=== PATIENT | female | born 1960 | race Caucasian/White ===

== ENCOUNTER 2016-06-26 23:09 | Observation (INO) | payer OTHER ==
[~2016-06-26] VITALS: Ht 170.2 cm; Wt 70.0 kg
[2016-06-26 23:10] VITALS: BP 187/92; PULSE 102; RESP 20; TEMP 98.6; O2SAT 98
--- NOTE | 2016-06-26 23:57 | PD ---
HPI Chief Complaint: Injury Time Seen by Provider: 23:48 Travel History International Travel<30 days: No Contact w/Intl Traveler<30days: No Traveled to known affect area: No History of Present Illness HPI 55-year-old female presents for evaluation of left wrist pain. She reports a prior to arrival she slipped in the bathroom and fell, landing on her left wrist. She now has left wrist pain and deformity. Pain is throbbing, constant , worse with movement. She denies any numbness or tingling distal to the injury site. Her primary care physician is Dr. Burks. She denies any other injuries and she has no other complaints at this time. [facility] Past Medical History Anxiety: Yes Past Surgical History Section: Yes (1996) Social History Alcohol Use: No Tobacco Use: No Substance Use: No Allergies-Medications (Allergen,Severity, Reaction): Coded Allergies: Compazine (Verified Allergy, Mild, 06/26/16) Penicillin (Verified Allergy, Unknown, 06/26/16) Reported Meds & Prescriptions Reported Meds & Active Scripts Active No Active Prescriptions or Reported Medications Review of Systems Except as stated in HPI: all other systems reviewed are Neg Physical Exam Narrative GENERAL: Well-developed well-nourished female who appears in pain. SKIN: Warm and dry. There is bruising around the left wrist. HEAD: Atraumatic. Normocephalic. EYES: Pupils equal and round. No scleral icterus. No injection or drainage. ENT: No nasal bleeding or discharge. Mucous membranes pink and moist. NECK: Trachea midline. No JVD. CARDIOVASCULAR: Regular rate and rhythm. No murmur appreciated. RESPIRATORY: No accessory muscle use. Clear to auscultation. Breath sounds equal bilaterally. MUSCULOSKELETAL left wrist deformity with tenderness to palpation. No open fractures. No skin tenting. 2+ radial pulse. Capillary refill less than 2 seconds all digits left hand. Distal sensation intact in the median radial and ulnar nerve distributions. NEUROLOGICAL: Awake and alert. No obvious cranial nerve deficits. Motor grossly within normal limits. Normal speech. Data Data Last Documented VS Vital Signs Date Time Temp Pulse Resp B/P Pulse Ox O2 Delivery O2 Flow Rate FiO2 06/27/16 01:21 70 15 138/81 99 06/26/16 23:10 98.6 Orders Iv Access Insert/Monitor (06/26/16 23:54) Morphine Inj (Morphine Inj) (06/27/16 00:00) Ondansetron Inj (Zofran Inj) (06/27/16 00:00) Wrist, Complete ([id number]) (06/26/16 ) Ice/Cold Pack (06/26/16 23:54) Hydromorphone Pf Inj (Dilaudid Pf Inj) (06/27/16 00:45) Splint Or Brace Apply/Monitor (06/27/16 01:12) Propofol 200 Mg/20 Ml Inj (Diprivan 200 (06/27/16 01:30) Sodium Chlor 0.9% 1000 Ml Inj (Ns 1000 M (06/27/16 01:30) Wrist, Limited (Ap&Lat) (06/27/16 ) Complete Blood Count With Diff (06/27/16 02:34) Basic Metabolic Panel (Bmp) (06/27/16 02:34) Act Partial Throm Time (Ptt) (06/27/16 02:34) Prothrombin Time / Inr (Pt) (06/27/16 02:34) Electrocardiogram (06/27/16 ) Admit Order (Ed Use Only) (06/27/16 02:40) Consult Orthopedic (06/27/16 ) Vital Signs (Adult) Q4H (06/27/16 02:41) Diet Npo (06/27/16 Breakfast) Activity Oob With Assistance (06/27/16 02:41) ^ Saline Lock (06/27/16 02:41) Resp Oxygen Eliezer C Titrat 1-4 L (06/27/16 ) ^ Notify Dr: Other (06/27/16 02:41) Ondansetron Inj (Zofran Inj) (06/27/16 02:45) Sodium Chloride 0.9% Flush (Ns Flush) (06/27/16 09:00) Sodium Chloride 0.9% Flush (Ns Flush) (06/27/16 02:45) Morphine Inj (Morphine Inj) (06/27/16 02:45) MDM Medical Decision Making Medical Screen Exam Complete: Yes Emergency Medical Condition: Yes Medical Record Reviewed: Yes Interpretation(s) Wrist x-ray FINDINGS: Examination demonstrates a comminuted and impacted fracture of the distal radial metaphysis with intra-articular extension and dorsal angulation and displacement. There are degenerative changes of the thumb basal joint identified. Differential Diagnosis Wrist fracture, dislocation, sprain, hematoma Narrative Course 55-year-old female presents after falls left wrist pain. IV was established and the patient was given pain medication, Zofran. X-ray confirms a comminuted and impacted fracture of the distal radial metaphysis with intra-articular extension and dorsal displacement. After informed consent was achieved, procedural sedation and closed reduction was performed. See Dr. Lewis's procedural sedation note. A sugar tong splint was applied. Postreduction films show some improvement in anatomical alignment but continued residual displacement. Discussed with the on-call orthopedist who would like patient admitted medically with orthopedic consultation. The patient is agreeable with this. Procedures Procedure Narrative Left wrist fracture reduction: After consent and sedation were achieved, the left wrist fracture was reduced by applying traction, countertraction. The patient had good capillary refill distally and 2+ radial pulse after the procedure. A sugar tong splint was applied. Patient tolerated procedure well. Diagnosis Primary Impression: Left wrist fracture Qualified Code: S62.102A - Left wrist fracture, closed, initial encounter Admitting Information Admitting Physician Requests: Observation Scripts No Active Prescriptions or Reported Meds Zeus Osman Jun 26, 2016 23:57
[2016-06-27] MEDS ORDERED: MORPHINE SULFATE 8 MG/ML INJ IV PUSH ONE
[2016-06-27] MEDS ORDERED: HYDROmorphone HCL PF 1 MG/ML VIAL IV PUSH ONE (00:45)
--- NOTE | 2016-06-27 01:07 | RADRPT ---
EXAM DATE/TIME: 06/27/2016 00:53 [facility] COMPARISON: No previous studies available for comparison. INDICATIONS : Left wrist pain, fall. MEDICAL HISTORY : None. SURGICAL HISTORY : None. ENCOUNTER: Initial ACUITY: 1 day PAIN SCORE: 10/10 LOCATION: Left wrist FINDINGS: Examination demonstrates a comminuted and impacted fracture of the distal radial metaphysis with intr a-articular extension and dorsal angulation and displacement. There are degenerative changes of the t humb basal joint identified. CONCLUSION: Distal radius fracture. Nixon Schaffer MD on June 27, 2016 at 1:05 Board Certified Radiologist. This report was verified electronically.
[2016-06-27 01:21] VITALS: BP 138/81; PULSE 70; RESP 15; O2SAT 99
[2016-06-27] MEDS ORDERED: PROPOFOL 200 MG/20 ML AMP IV ONE ×3 (01:30→12:00)
[2016-06-27] MEDS ORDERED: SODIUM CHLOR 0.9% 1000 ML INJ 1,000 ML IV ONE (01:30)
[2016-06-27 01:45] VITALS: O2SAT 100
--- NOTE | 2016-06-27 02:14 | PD ---
Data Data Last Documented VS Vital Signs Date Time Temp Pulse Resp B/P Pulse Ox O2 Delivery O2 Flow Rate FiO2 06/27/16 01:21 70 15 138/81 99 06/26/16 23:10 98.6 Orders Iv Access Insert/Monitor (06/26/16 23:54) Morphine Inj (Morphine Inj) (06/27/16 00:00) Ondansetron Inj (Zofran Inj) (06/27/16 00:00) Wrist, Complete ([id number]) (06/26/16 ) Ice/Cold Pack (06/26/16 23:54) Hydromorphone Pf Inj (Dilaudid Pf Inj) (06/27/16 00:45) Splint Or Brace Apply/Monitor (06/27/16 01:12) Propofol 200 Mg/20 Ml Inj (Diprivan 200 (06/27/16 01:30) Sodium Chlor 0.9% 1000 Ml Inj (Ns 1000 M (06/27/16 01:30) Wrist, Limited (Ap&Lat) (06/27/16 ) MDM Medical Record Reviewed: Yes Supervised Visit with IDA: Yes Procedures Procedure Narrative After the risks and benefits were discussed the following procedure was performed: MODERATE SEDATION: The patient was placed on a horseradish grinder and pulse oximetry. An ambu bag and suction was immediately available at bedside. The patient was monitored by the nurse. Oxygen saturation , heart rate and blood pressure were monitored. Procedural sedation was acheived using propofol. The patient was observed until awake and alert. Procedural Sedation time in attendance was 15 minutes. Scripts No Active Prescriptions or Reported Lawrences Stalin Franco MD Jun 27, 2016 02:14
--- NOTE | 2016-06-27 02:33 | RADRPT ---
EXAM DATE/TIME: 06/27/2016 02:26 [facility] COMPARISON: WRIST LEFT COMPLETE ([id number]), June 27, 2016, 0:53. INDICATIONS : Post reduction, left wrist. MEDICAL HISTORY : None. SURGICAL HISTORY : None. ENCOUNTER: Initial ACUITY: 1 day PAIN SCORE: 7/10 LOCATION: Left wrist FINDINGS: Cast in place. Distal radial metaphysis fracture is again seen with displaced fragments noted and mil d dorsal angulation. CONCLUSION: Distal radius fracture. Nixon Schaffer MD on June 27, 2016 at 2:31 Board Certified Radiologist. This report was verified electronically.
[2016-06-27] MEDS ORDERED: ONDANSETRON HCL 4 MG/2 ML VIAL IV PRN (02:45)
[2016-06-27] MEDS ORDERED: SODIUM CHLORIDE 0.9% FLUSH 5 ML FLUSH IVF PRN (02:45)
[2016-06-27 03:09] LABS: BASOPHIL # 0.1 TH/MM3 (0-0.2); BASOPHIL % 0.5 % (0.0-2.0); EOSINOPHIL % 0.3 % (0.0-4.0); HEMATOCRIT 37.1 % (35.0-46.0); HEMO FLAGS DIFF FINAL; LYMPH % 15.1 % (9.0-44.0); LYMPHOCYTE # 1.6 TH/MM3 (1.0-4.8); MEAN CELL VOLUME 92.2 FL (80.0-100.0); MEAN CORPUSCULAR HGB CONC 34.7 % (32.0-36.0); MONO % 9.4 % (0.0-8.0); NEUT % 74.7 % (16.0-70.0); PLATELET COUNT 248 TH/MM3 (150-450); RED BLOOD COUNT 4.02 MIL/MM3 (4.00-5.30); RED CELL DISTRIBUTION WIDTH 13.7 % (11.6-17.2); WHITE BLOOD COUNT 10.7 TH/MM3 (4.0-11.0)
[2016-06-27 03:20] LABS: PROTHROMBIN TIME - PATIENT 10.6 SEC (9.8-11.6)
[2016-06-27 03:23] LABS: BICARBONATE 27.8 MEQ/L (21.0-32.0); POTASSIUM 3.9 MEQ/L (3.5-5.1)
[2016-06-27] MEDS: MORPHINE SULFATE 4 MG/ML INJ IV PUSH PRN ×2 (03:32→06:21)
[2016-06-27 06:55] VITALS: BP 146/81; PULSE 75; RESP 18; TEMP 98.6; O2SAT 99
[2016-06-27] MEDS ORDERED: BUPIVACAINE/EPINEPHRINE 0.25% PF 30 ML VIAL ONE (07:00)
[2016-06-27] MEDS ORDERED: GENTAMICIN SULFATE 80 MG/2 ML VIAL ONE (07:00)
[2016-06-27] MEDS ORDERED: VANCOMYCIN HCL 1000 MG VIAL ONE (07:00)
[2016-06-27] MEDS ORDERED: SODIUM CHLOR 0.9% 250 ML INJ 250 ML ONE (07:01)
--- NOTE | 2016-06-27 07:10 | PD.ORT.PN ---
Subjective Subjective Remarks s/p fall at home. left wrist pain Objective Vitals Vital Signs Date Time Temp Pulse Resp B/P Pulse Ox O2 Delivery O2 Flow Rate FiO2 06/27/16 01:45 100 Nasal Cannula 3.00 06/27/16 01:45 100 3.00 06/27/16 01:21 70 15 138/81 99 06/26/16 23:10 98.6 102 20 187/92 98 Result Diagram: 06/27/16 0300 06/27/16 0300 Other Results Laboratory Tests Test 06/27/16 03:00 Prothrombin Time 10.6 SEC (9.8-11.6) Prothromb Time International 1.0 RATIO Ratio Imaging Last 24 hours Impressions Wrist X-Ray 06/27/16 0000 Signed Impressions: Service Date/Time: Monday, June 27, 2016 02:26 - CONCLUSION: Distal radius fracture. Nixon Schaffer MD Objective Remarks LUE: +sugar tong splint. NVI with good sensation of fingers. Assessment & Plan Assessment and Plan 1) Left Distal Radius Fx -consents -surgery today -plan for DC home later today post op -f/u with Sylvia or STEPHEN in 2 weeks Demario Carballo Jun 27, 2016 07:10
[2016-06-27] MEDS ORDERED: ACETAMINOPHEN 1000 MG/100 ML VIAL IV ONE (07:38)
[2016-06-27] MEDS ORDERED: MIDAZOLAM HCL 2 MG/2 ML VIAL ONE (07:38)
[2016-06-27] MEDS ORDERED: ceFAZolin 2 GM PREMIX 50 ML ONE (07:39)
[2016-06-27] MEDS ORDERED: FAMOTIDINE 20 MG/2 ML VIAL ONE (07:39)
--- NOTE | 2016-06-27 07:48 | MB ---
cc: ROSANNE YING DATE OF CONSULTATION: 06/27/2016 REASON FOR CONSULTATION Displaced left distal radius fracture. HISTORY OF PRESENT ILLNESS Lucia is a 55-year-old female who was at home. She was walking out of the bathroom when she slipped and fell. She describes a mechanical fall. She denies dizziness, syncope or loss of consciousness. She landed on her left outstretched arm. She had immediate left wrist pain and deformity. She presented to the emergency room where x-rays revealed a displaced left distal radius fracture. She is currently awake and alert on the orthopedic floor. Her only complaint is her left wrist. The pain is worse with movement and is improved with rest. PAST MEDICAL HISTORY ILLNESSES Anxiety. SURGERIES . ALLERGIES 1. COMPAZINE. 2. PENICILLIN. MEDICATIONS None prior to hospitalization. SOCIAL HISTORY The patient denies alcohol, tobacco or drug use. FAMILY HISTORY The patient denies familial medical problems. REVIEW OF SYSTEMS The patient denies headache, visual changes, neck pain, chest pain, shortness of breath, abdominal pain, nausea, vomiting or recent weight loss. She complains of left wrist pain. PHYSICAL EXAMINATION GENERAL: The patient is a well-developed, well-nourished 55-year-old female in no acute distress. She is awake and alert. She is alert and oriented x3. VITAL SIGNS: Temperature 98.6, pulse 102, respirations 15, blood pressure 138/81. O2 sat is 99% on three liters nasal cannula. HEAD: The patient is normocephalic. Pupils are equal. NECK: Soft and nontender. Trachea is midline. ABDOMEN: Soft, nontender, nondistended. EXTREMITIES: Examination of left arm reveals diffuse tenderness around her wrist. There is mild swelling present. She has intact sensation in radial, ulnar and median nerve distributions. The radial pulse is palpable. Skin is intact. She has no tenderness around her elbow or shoulder. Examination of right arm reveals no pain with shoulder, elbow or wrist motion. Skin is intact. Radial pulse is palpable. Sensation is intact in all fingers. [employer] strength is +5. Examination of bilateral lower extremities reveals no significant pain with hip, knee or ankle motion. Skin is intact to both feet. Dorsalis pedis pulses are palpable. X-RAYS X-rays of the left wrist were reviewed. X-rays reveal a comminuted intraarticular displaced left distal radius fracture. IMPRESSION A comminuted displaced intraarticular left distal radius fracture. PLAN The treatment options were discussed with the patient. At this point I would recommend open reduction, internal fixation of the left distal radius. The risks of surgery include bleeding, infection, injuries to arteries, nerves and blood vessels, tendon rupture, painful hardware, wrist stiffness, loss of motion, wrist arthritis as well as medical complications associated with anesthesia. All questions were answered. I will plan on surgery today. A mid-level provider in my office, nurse practitioner or PA, may see this patient on a follow-up basis and continue to implement the objective of this plan including: Starting or adjusting medications, injections of muscle, tendon, bursa or joints, cast application, orthotic or brace application, physical therapy, further radiographic studies including x-ray, MRI, CT, ultrasounds or bone scan, vascular studies, neurologic studies, or other specialist consultations, and proceeding with surgical management as appropriate. MD NAIF Gr/CHANTE /7:17 AM /7:37 AM
--- NOTE | 2016-06-27 08:50 | PD.OP ---
cc: Emile Antoine MD Operative Report Date of Surgery: Jun 27, 2016 Preoperative Diagnosis: Displaced left distal radius intra-articular fracture Postoperative Diagnosis: Procedure: Open reduction internal fixation left distal radius fracture Anesthesia: Gen. Surgeon: Emile Antoine Publication Manager(s): MARGARITO Rivera PA-C The surgical procedure was assisted by my physician resident assistant cna. My P.A. presence was necessary throughout this case for the manipulation and positioning of the surgical extremity. My P.A. was assisting me throughout the duration of this procedure. The skill set of a physician resident assistant cna was medically necessary to complete this procedure. During the surgical case the electrical/instrument technician was working at the back table and the physician resident assistant cna was directly assisting me. Operation and Findings: Lucia was seen and evaluated preoperatively and found to have a displaced left distal radius intra-articular fracture. Informed consent was obtained after detailed discussion of risk and benefits including bleeding, infection, injury to arteries, nerves, and blood vessels, weakness and numbness of hand, and tendon rupture. Informed consent was obtained. Patient received IV antibiotics prior to incision. Timeout procedure was performed. Operative extremity was prepped with alcohol followed by Hibiclens and draped usual sterile fashion. A standard volar approach to the distal radius was utilized. A 3 inch incision was made over the FCR tendon. Tendon sheath was opened. Pronator quadratus was elevated up. The fracture site was now visualized. The fracture did have intra-articular extension. Traction was applied. The articular surface was reduced. Fracture fragments were manipulated to achieve excellent reduction. K wires were used to hold provisional fixation. Fluoroscopy confirmed appropriate alignment of fracture. A Synthes 2 column variable angle distal radius plate was selected. Plate was provisionally fixed to bone with K wires. 2.7 and 2.4 cortical screws were used to compress plate to bone. Fluoroscopy confirmed appropriate alignment of fracture with well-placed hardware. Multiple 2.4 locking screws were now placed distally. Screws were predrilled and measured for appropriate length. 2 additional screws were placed into the shaft. K wires were removed. Final fluoroscopy revealed excellent of fracture with well-placed hardware. The wound was thoroughly irrigated with sterile saline. Subcutaneous tissue was closed with 3-0 Vicryl and skin was closed with 3-0 nylon. Sterile dressings were applied with Xeroform, 4 x 4, soft roll , and a well padded volar splint. Patient was awakened and transferred to recovery room in stable condition Emile Antoine MD Jun 27, 2016 08:50
[2016-06-27] MEDS ORDERED: HYDR-3288 PO (08:51)
[2016-06-27] MEDS ORDERED: MORPHINE SULFATE 4 MG/ML INJ IV PUSH PRN (09:00)
[2016-06-27] MEDS ORDERED: SODIUM CHLORIDE 0.9% FLUSH 5 ML FLUSH IVF SCH (09:00)
[2016-06-27] MEDS ORDERED: ACETAMINOPHEN/HYDROcodone 325 MG/7.5 MG TAB PO PRN ×2 (09:00)
[2016-06-27] MEDS ORDERED: DO NOT ADM ANY ANTICOAGULANT DRUGS XX PRN (09:15)
[2016-06-27] MEDS ORDERED: *morphine SULFATE 8 MG/ML PERIprocedure ONLY ONE (09:28)
[2016-06-27 09:43] VITALS: BP 130/71; PULSE 73; RESP 18; TEMP 97.9; O2SAT 97
[2016-06-27 09:45] VITALS: BP 131/86
--- NOTE | 2016-06-27 09:45 | RADRPT ---
EXAM DATE/TIME: 06/27/2016 08:39 [facility] COMPARISON: WRIST LEFT LIMITED (AP & LAT), June 27, 2016, 2:26. INDICATIONS: Post-op ORIF left distal radius. MEDICAL HISTORY: None. SURGICAL HISTORY: None. ENCOUNTER: Subsequent ACUITY: 1 day PAIN SCORE: Non-responsive. LOCATION: Left upper extremity FINDINGS: Plate with screws is seen bridging the fracture of distal radius. Alignment is anatomic in the AP an d lateral projections. CONCLUSION: Anatomic alignment. Paulino Noriega MD FACR on June 27, 2016 at 9:22 Board Certified Radiologist. This report was verified electronically.
[2016-06-27 09:50] VITALS: PULSE 70; RESP 16; O2SAT 97
--- NOTE | 2016-06-27 10:34 | HHI.HP ---
HPI Service [facility] Primary Care Physician Amari Burks MD Admission Diagnosis L wrist fracture Chief Complaint: Left wrist pain Travel History International Travel<30 Days: No Contact w/Intl Traveler <30 Da: No Traveled to Known Affected Are: No History of Present Illness Mrs. Watts is a pleasant 55 y/o female without significant past medical history. She presented to the ED at [facility] on 06/26/16 for evaluation of left wrist pain. Prior to arrival she slipped in the bathroom and fell, landing on her left wrist. She had left wrist pain and deformity in the ED. She denied any numbness or tingling distal to the injury site. She was found to have left distal radius fracture on X-ray. Pt was seen by Orthopedic surgery and underwent ORIF of left distal radius fracture on 06/27/16. Pt is seen post- operatively and is doing well. She has been cleared by Ortho for discharge. Review of Systems Constitutional: DENIES: Fever, Chills Respiratory: DENIES: Shortness of breath Cardiovascular: DENIES: Chest pain, Lower Extremity Edema Gastrointestinal: DENIES: Abdominal pain, Nausea, Vomiting Genitourinary: DENIES: Hematuria, Dysuria Musculoskeletal: COMPLAINS OF: Joint pain, DENIES: Neck pain Integumentary: DENIES: Rash Neurologic: DENIES: Headache, Localized weakness, Paresthesias Past Family Social History Past Medical History Anxiety Past Surgical History Cesarian section in 1996 Wound irrigation and repair of flexor carpi ulnaris tendon Reported Medications No home meds Allergies: Coded Allergies: Compazine (Verified Allergy, Mild, 06/26/16) Penicillin (Verified Allergy, Unknown, 06/26/16) Family History Noncontributory Social History Denies any alcohol, tobacco or illicit drug use Physical Exam Vital Signs Vital Signs Date Time Temp Pulse Resp B/P Pulse Ox O2 Delivery O2 Flow Rate FiO2 06/27/16 09:50 70 16 97 Room Air 06/27/16 09:45 70 16 131/86 100 06/27/16 09:30 74 16 123/80 98 Nasal Cannula 2 06/27/16 09:15 82 16 121/76 96 Nasal Cannula 2 06/27/16 09:10 98.7 88 16 108/57 92 Nasal Cannula 2 06/27/16 06:55 98.6 75 18 146/81 99 06/27/16 01:45 100 Nasal Cannula 3.00 06/27/16 01:45 100 3.00 06/27/16 01:21 70 15 138/81 99 06/26/16 23:10 98.6 102 20 187/92 98 Physical Exam GENERAL: This is a well-nourished, well-developed patient, in no apparent distress. HEENT: Atraumatic. Normocephalic. No temporal or scalp tenderness. No scleral icterus. Airway patent. NECK: Trachea midline, supple, nontender. CARDIO: Regular. RESP: CTA bilaterally. No wheezes, rales, or rhonchi. ABD: +BS, soft, non-tender, nondistended. EXT: Left wrist bandages are c/d/i NEURO: Awake and alert. Motor and sensory grossly within normal limits. Normal speech. Laboratory Laboratory Tests Test 06/27/16 03:00 White Blood Count 10.7 Red Blood Count 4.02 Hemoglobin 12.9 Hematocrit 37.1 Mean Corpuscular Volume 92.2 Mean Corpuscular Hemoglobin 32.0 Mean Corpuscular Hemoglobin 34.7 Concent Red Cell Distribution Width 13.7 Platelet Count 248 Mean Platelet Volume 7.1 Neutrophils (%) (Auto) 74.7 Lymphocytes (%) (Auto) 15.1 Monocytes (%) (Auto) 9.4 Eosinophils (%) (Auto) 0.3 Basophils (%) (Auto) 0.5 Neutrophils # (Auto) 8.0 Lymphocytes # (Auto) 1.6 Monocytes # (Auto) 1.0 Eosinophils # (Auto) 0.0 Basophils # (Auto) 0.1 CBC Comment DIFF FINAL Differential Comment Prothrombin Time 10.6 Prothromb Time International 1.0 Ratio Activated Partial 26.0 Thromboplast Time Sodium Level 145 Potassium Level 3.9 Chloride Level 110 Carbon Dioxide Level 27.8 Anion Gap 7 Blood Urea Nitrogen 15 Creatinine 0.83 Estimat Glomerular Filtration 71 Rate Random Glucose 100 Calcium Level 7.9 Result Diagram: 06/27/16 0300 06/27/16 0300 Imaging Last Impressions Wrist X-Ray 06/27/16 0000 Signed Impressions: Service Date/Time: Monday, June 27, 2016 02:26 - CONCLUSION: Distal radius fracture. Nixon Schaffer MD Septic Shock Reassessment Heart: Regular rate and rhythm Lungs: Clear Skin: Warm Peripheral Pulses: Bounding Right Radial Bounding Left Radial Bounding Right Popliteal Bounding Left Popliteal Bounding Right Dorsalis Pedis Bounding Left Dorsalis Pedis Bounding Right Posterior Tibial Bounding Left Posterior Tibial Capillary Refill: <2 seconds Assessment and Plan Problem List: (1) Left wrist fracture Status: Acute Plan: - Pt admitted with a distal left radius fracture. - Pt s/p ORIF of distal radius fracture on 06/27/[address] Ward. - Orthopedic surgery has written for Jelm and cleared the pt for discharge today - Pt is seen post-operatively and is doing well. - She will need followup with her PCP, Dr. Lambert, in 1 week - Pt will need followup with Dr. Ward in 2 weeks. Assessment and Plan Patient examined. Assessment and plan formulated with Elle Lilly PA-C. I agree with the above. doing well. d/c home. Problem Qualifiers (1) Left wrist fracture: Qualified Code: S62.102A - Left wrist fracture, closed, initial encounter Elle Lilly Jun 27, 2016 10:09 Melecio Albert MD Jun 27, 2016 11:49
--- NOTE | 2016-06-27 10:34 | HHI.DCPOC ---
Discharge Care Plan Diagnosis: (1) Left wrist fracture Goals to Promote Your Health * To prevent worsening of your condition and complications * To maintain your health at the optimal level Directions to Meet Your Goals Take your medications as prescribed Follow your dietary instruction Follow activity as directed Keep your appointments as scheduled Take your immunizations and boosters as scheduled If your symptoms worsen call your PCP, if no PCP go to Urgent Care Center or Emergency Room Smoking is Dangerous to Your Health. Avoid second hand smoke Call the 24-hour hour crisis hotline for domestic abuse at Elle Lilly Jun 27, 2016 10:10
--- NOTE | 2016-06-27 11:21 | HHI.DCPOC ---
Discharge Care Plan Diagnosis: (1) Left wrist fracture Goals to Promote Your Health * To prevent worsening of your condition and complications - Pt is to followup with her PCP, Dr. Burks, in 1 week, call for an appt. - Pt is to followup with Dr. Ward in 2 weeks, call for an appt. - Pt has been prescribed pain meds by Ortho - Pt can use OTC stool softeners if using pain medications to prevent constipation. Directions to Meet Your Goals Take your medications as prescribed Follow your dietary instruction Follow activity as directed Keep your appointments as scheduled Take your immunizations and boosters as scheduled If your symptoms worsen call your PCP, if no PCP go to Urgent Care Center or Emergency Room Smoking is Dangerous to Your Health. Avoid second hand smoke Call the 24-hour hour crisis hotline for domestic abuse at Elle Lilly Jun 27, 2016 11:21
--- NOTE | 2016-06-27 11:39 | EKG ---
Date Performed: 06/27/2016 Time Performed: 03:36:35 PTAGE: 55 years EKG: Sinus rhythm POSSIBLE RIGHT VENTRICULAR CONDUCTION DELAY BORDERLINE ECG NO PREVIOUS TRACING DOCTOR: Alexys Gomez Interpretating Date/Time 06/27/2016 11:37:51
[2016-06-27] MEDS ORDERED: fentaNYL CITRATE 250 MCG/5 ML AMP ONE (11:53)
[2016-06-27] MEDS ORDERED: ePHEDrine/NS 25 MG/5 ML SYR IV ONE (12:00)
[2016-06-27] MEDS ORDERED: ONDANSETRON HCL 4 MG/2 ML VIAL IV PUSH ONE ×2 (12:00)
== END 2016-06-27 14:33 | disposition home or self-care (01) ==
LOC: NEPB 23:09 → NEDA 06-27 02:42 → N06B 06-27 06:51
PROVIDERS: ADMIT Hospitalist; ATTEND Hospitalist
DX: S52.572A Other intraarticular fracture of lower end of left radius, initial encounter for closed fracture (principal); F41.9 Anxiety disorder, unspecified; R94.31 Abnormal electrocardiogram [ECG] [EKG]; W01.0XXA Fall on same level from slipping, tripping and stumbling without subsequent striking against object, initial encounter; Y93.01 Activity, walking, marching and hiking
CPT/HCPCS: 01830; 25605; 25608; 73100; 73110; 76000; 80048; 85025; 85610; 85730; 93005; 96374; 96375; 99156; 99284; C1713; G0378; J0131; J0690; J1170; J1580; J2250; J2270; J2405; J3010; J3370; J7030; J7050